=== PATIENT | male | born 1945 | race Caucasian/White ===

== ENCOUNTER 2017-02-13 10:58 | Emergency (ER) | payer MEDICARE, OTHER ==
[2017-02-13 11:06] VITALS: BP 152/82
--- NOTE | 2017-02-13 11:24 | ED Physician Documentation ---
PD HPI LOWER EXT INJURY - Stated complaint Stated Complaint: R LEG PX - Chief complaint Chief Complaint: Ext Problem - History obtained from History obtained from: Patient - History of Present Illness PD HPI LOW EXT INJURY LOCATION: Right, Lower leg (anteriorly) Type of injury: Blunt / blow Timing - onset: How many weeks ago (1) Timing - duration: Weeks (1) Timing - details: Gradual onset (not much tenderness with initial injury but is hurting with redness and swelling the past 2 days) Worsened by: Palpating Associated symptoms: Swelling, Discolored (bruising lower in leg and at ankle/ dorsum of foot.). No: Weakness, Numbness Contributing factors: No: Anticoagulated Similar symptoms before: Has not had sx before Recently seen: Not recently seen Review of Systems Constitutional: denies: Fever, Chills, Myalgias GI: denies: Nausea, Vomiting Skin: reports: Abrasion (s) Musculoskeletal: reports: Extremity swelling PD PAST MEDICAL HISTORY - Past Medical History Cardiovascular: None Endocrine/Autoimmune: None GI: None - Past Surgical History Past Surgical History: Yes - Present Medications Home Medications: Ambulatory Orders Medication Instructions Recorded Confirmed Aspirin 81 mg PO DAILY 02/13/17 02/13/17 Cephalexin [Keflex] 500 mg PO QID #24 capsule 02/13/17 Rosuvastatin Calcium [Crestor] 20 mg PO DAILY 02/13/17 02/13/17 - Allergies Allergies/Adverse Reactions: Allergies Allergy/AdvReac Type Severity Reaction Status Date / Time No Known Drug Allergies Allergy Verified 02/13/17 11:05 - Social History Does the pt smoke?: No Smoking Status: Never smoker Does the pt drink ETOH?: No Does the pt have substance abuse?: No - Immunizations Immunizations are current?: Yes - POLST Patient has POLST: No PD ED PE NORMAL - Vitals Vital signs reviewed: Yes - General General: Alert and oriented X 3, No acute distress, Well developed/nourished - Derm Derm: Normal color, Warm and dry, Other (anterior lower leg with small scabbed abrasions. There is redness and warmth of skin surrounding it. No drainage. No fluctuance. There is some bruising color of skin around ankle and dorsum of foot , appearing different that the redness around the abrasions. ) - Neuro Neuro: No motor deficit, No sensory deficit Results - Vitals Vitals: Vital Signs - 24 hr 02/13/17 11:03 Temperature 36.2 C L Heart Rate 64 Respiratory 16 Rate Blood Pressure 152/82 H O2 Saturation 97 Oxygen O2 Source Room air Departure - Departure Disposition: 01 Home, Self Care Clinical Impression: Cellulitis, leg Qualifiers: Laterality: right Qualified Code(s): L03.115 - Cellulitis of right lower limb Condition: Stable Record reviewed to determine appropriate education?: Yes Instructions: ED Infec Skin Cellulitis Follow-Up: Eduardo Rojas MD [Primary Care Provider] - Prescriptions: Cephalexin [Keflex] 500 mg PO QID #24 capsule Comments: Use compressive stockings or elastic wrap for the foot and lower leg to help reduce swelling. Use warmth or heat to the anterior lower leg a few times a day for concern of infection. Take the cephalexin as prescribed which is an antibiotic. Recheck if not improving over the next few days and sooner if worse. Elevate the leg periodically through the day to help reduce swelling. Discharge Date/Time: 02/13/17 11:57
[2017-02-13] MEDS ORDERED: CEPHALEXIN 250 MG CAPSULE PO STA (11:41)
[2017-02-13] MEDS ORDERED: CEPHALEXIN 250 MG CAPSULE PO ONE (11:49)
== END 2017-02-13 11:57 | disposition home or self-care (01) ==
LOC: ED 10:58
DX: L03.115 Cellulitis of right lower limb (principal); Z79.82 Long term (current) use of aspirin
CPT/HCPCS: 99282; 99283; A9270

== ENCOUNTER 2018-03-13 09:06 | Outpatient (CLI) | payer MEDICARE, OTHER ==
[2018-03-13 11:22] LABS: ALBUMIN 3.8 g/dL (3.2-5.5); ALBUMIN/GLOBULIN RATIO 1.3 (1.0-2.2); ALKALINE PHOSPHATASE 77 IU/L (42-121); ALT ALANINE AMINOTRANSFERASE 23 IU/L (10-60); AST ASPARTATE AMINOTRANSFERASE 24 IU/L (10-42); BILIRUBIN,TOTAL 1.1 mg/dL (0.2-1.0); BUN - BLOOD UREA NITROGEN 16 mg/dL (6-20); CALCIUM 9.1 mg/dL (8.5-10.3); CARBON DIOXIDE - CO2 29 mmol/L (21-32); CHLORIDE 105 mmol/L (101-111); CHOL/HDL RATIO 2.8 (<5.0); CHOLESTEROL 150 mg/dL; CREATININE 0.9 mg/dL (0.6-1.2); GFR - MDRD 83 (>89); GLUCOSE 113 mg/dL (70-100); HDL CHOLESTEROL 53 mg/dL; LDL CHOLESTEROL,CALCULATED 74 mg/dL; LDL/HDL RATIO 1.4 (<3.6); SODIUM 140 mmol/L (135-145); TOTAL PROTEIN 6.8 g/dL (6.7-8.2); VLDL CHOLESTEROL 23 mg/dL
== END 2018-03-13 09:07 | disposition home or self-care (01) ==
LOC: LAB.F 09:06
PROVIDERS: ATTEND Family Medicine
DX: E78.00 Pure hypercholesterolemia, unspecified (principal)
CPT/HCPCS: 36415; 80053; 80061; 83721; 84443

== ENCOUNTER 2018-05-22 13:57 | Outpatient (CLI) | payer MEDICARE, OTHER ==
--- NOTE | 2018-05-22 15:29 | XRAY Report ---
Reason: L HEEL PAIN X MONTHS Procedure Date: 05/22/2018 Accession Number: [id number] / [id number] Procedure: XR - Calcaneus LT CPT Code: FULL RESULT: EXAM: LEFT CALCANEUS RADIOGRAPHY. EXAM DATE: 05/22/2018 02:02 PM. CLINICAL HISTORY: Left heel pain x months. COMPARISON: None. TECHNIQUE: 2 views. FINDINGS: Bones: Mild inferior calcaneal enthesopathy. No fractures or bone lesions. Joints: Normal. No effusion. No subluxations. The ankle mortise is normally aligned. Soft Tissues: Normal. No soft tissue swelling. IMPRESSION: No calcaneal fracture or mass. RADIA
== END 2018-05-22 13:58 | disposition home or self-care (01) ==
LOC: DI 13:57
PROVIDERS: ATTEND Podiatrist
DX: M79.672 Pain in left foot (principal)

== ENCOUNTER 2019-01-30 08:27 | Outpatient (CLI) | payer MEDICARE, OTHER ==
[2019-01-30 19:05] LABS: ALBUMIN 3.9 g/dL (3.2-5.5); ALBUMIN/GLOBULIN RATIO 1.3 (1.0-2.2); ALKALINE PHOSPHATASE 80 IU/L (42-121); ALT ALANINE AMINOTRANSFERASE 21 IU/L (10-60); AST ASPARTATE AMINOTRANSFERASE 22 IU/L (10-42); BILIRUBIN,TOTAL 0.7 mg/dL (0.2-1.0); BUN - BLOOD UREA NITROGEN 15 mg/dL (6-20); CALCIUM 9.3 mg/dL (8.5-10.3); CARBON DIOXIDE - CO2 25 mmol/L (21-32); CHLORIDE 107 mmol/L (101-111); CHOLESTEROL 157 mg/dL; CREATININE 0.8 mg/dL (0.6-1.2); GFR - MDRD 95 (>89); GLUCOSE 94 mg/dL (70-100); HDL CHOLESTEROL 52 mg/dL; LDL CHOLESTEROL,CALCULATED 64 mg/dL; LDL/HDL RATIO 1.2 (<3.6); SODIUM 140 mmol/L (135-145); TOTAL PROTEIN 6.8 g/dL (6.7-8.2); VLDL CHOLESTEROL 41 mg/dL
== END 2019-01-30 08:28 | disposition home or self-care (01) ==
LOC: LAB.S 08:27
PROVIDERS: ATTEND Physician Assistant Medical
DX: E78.00 Pure hypercholesterolemia, unspecified (principal); R03.0 Elevated blood-pressure reading, without diagnosis of hypertension; Z12.5 Encounter for screening for malignant neoplasm of prostate
CPT/HCPCS: 36415; 80053; 80061; 84443; G0103; 83721; 84153

== ENCOUNTER 2019-12-03 09:27 | Outpatient (CLI) | payer MEDICARE, OTHER ==
[2019-12-03 10:38] LABS: PSA FREE 0.95 ng/mL (0.16-2.81)
[2019-12-03 10:39] LABS: PSA TOTAL 3.9 ng/mL (0.000-2.000)
== END 2019-12-03 09:28 | disposition home or self-care (01) ==
LOC: LAB 09:27
PROVIDERS: ATTEND Urology
DX: R97.20 Elevated prostate specific antigen [PSA] (principal)
CPT/HCPCS: 36415; 84153; 84154

== ENCOUNTER 2022-02-12 08:00 | Outpatient (CLI) | payer MEDICARE, OTHER ==
--- NOTE | 2022-02-13 01:33 | XRAY Report ---
PROCEDURE: Chest 2 View X-Ray INDICATIONS: VIRAL ILLNESS TECHNIQUE: 2 views of the chest. COMPARISON: None. FINDINGS: Surgical changes and devices: None. Lungs and pleura: There is hyperinflation of the lungs with flattening of the hemidiaphragms compati ble COPD. Mild pulmonary vascular prominence is demonstrated suggestive of mild pulmonary edema. No p leural effusions or pneumothorax. Mediastinum: Heart size is slightly enlarged. Bones and chest wall: No suspicious bony abnormalities. Soft tissues appear unremarkable. IMPRESSION: 1. Findings compatible with COPD. 2. Mild pulmonary vascular prominence suggestive of mild bone edema which may be due to congestive he art failure or noncardiogenic etiologies such as atypical pneumonia. Reviewed by: Zeferino Hutson MD on 02/13/2022 1:32 AM PDT Approved by: Zeferino Hutson MD on 02/13/2022 1:32 AM PDT Station ID: [id number]
== END 2022-02-12 23:59 | disposition home or self-care (01) ==
LOC: DI.S 08:00
PROVIDERS: ATTEND Physician Assistant Medical
DX: B34.9 Viral infection, unspecified (principal)

== ENCOUNTER 2024-03-08 08:00 | Outpatient (CLI) | payer MEDICARE, OTHER | END 2024-03-08 23:59 | disposition home or self-care (01) | LOC: LAB.S 08:00 | PROVIDERS: ATTEND Registered Nurse | DX: R05.1 Acute cough (principal) ==

== ENCOUNTER 2024-03-16 08:48 | Outpatient (CLI) | payer MEDICARE, OTHER ==
--- NOTE | 2024-03-16 12:53 | XRAY Report ---
PROCEDURE: Chest 2V INDICATIONS: ACUTE COUGH TECHNIQUE: 2 views of the chest were acquired. COMPARISON: Chest x-ray 02/12/2022 FINDINGS: Surgical changes and devices: None. Lungs and pleura: No pleural effusions or pneumothorax. Lungs are clear. Mediastinum: Mediastinal contours appear normal. Heart size is enlarged. Bones and chest wall: No suspicious bony lesions. Overlying soft tissues appear unremarkable. IMPRESSION: No acute cardiopulmonary process. Reviewed by: Tiffany Obando MD on 03/16/2024 12:52 PM PDT Approved by: Tiffany Obando MD on 03/16/2024 12:52 PM PDT Station ID: [id number]
== END 2024-03-16 08:49 | disposition home or self-care (01) ==
LOC: DI 08:48
PROVIDERS: ATTEND Physician Assistant
DX: R05.1 Acute cough (principal)